=== PATIENT | female | born 1965 | race Caucasian/White ===

== ENCOUNTER 2019-11-27 06:59 | Day surgery (SDC) | payer OTHER, SELFPAY ==
[2019-11-27 07:15] VITALS: BP 154/90; PULSE 103; RESP 18; TEMP 36.7; O2SAT 97
[2019-11-27] MEDS: sodium chloride 0.9% 1,000 ML 30 ML (07:26)
--- NOTE | 2019-11-27 08:28 | ANES.PREANE2 ---
Pre-Anesthetic Assessment Pre-Anesthetic Assessment: Height/Weight: Height 1.63 m Weight 79.379 kg Temp Pulse Resp BP Pulse Ox 98.1 F 103 H 18 154/90 97 11/27/19 07:15 11/27/19 07:15 11/27/19 07:15 11/27/19 07:15 11/27/19 07:15 Proposed Procedure: Operation Date: 11/27/19 08:00 Proposed Procedures p Colonoscopy(Not Applicable) - Jet Cason MD Was Beta Che taken within 24 hours: N/A Last Intake: 00:00 Social: Social History: Tobacco and No alcohol Packs per day: 1 Exam: Pre-Anes Outpt Exam: alert, oriented x 3, clear to auscultation bilaterally and regular rate & rhythm Airway: Submandibular: WNL Cervical ROM: WNL MP: 2 Dentition: Full History/ROS: No significant history except as noted and No significant complaints Pulmonary: Pulmonary: None reported CV/HEM: CV/HEM: None reported : : None reported Hepatic: Hepatic: None reported GI: GI: None reported Metabolic: Metabolic: None reported Musc/skel: Musc/skel: None reported Neuropsych: Neuropsych: None reported Anesthetic Plan: ASA status: 2 Anesthesia: MAC Risk of > 500 ml blood loss (7ml/kg in children): No PFSH Anesthesia PFSH: Social History (Updated 11/26/19 @ 13:53 by Oly John) Smoking and tobacco status: current every day smoker Quit status (tobacco): not considering quitting Second hand smoke exposure: Yes Smoking risk assessment/counseling performed?: No Data Anesthesia Cardiac Studies: No Data to Display
--- NOTE | 2019-11-27 08:29 | PM.HPUD ---
H&P update H&P Update: DATE OF SURGERY/PROCEDURE: 11/27/19 DATE H&P PERFORMED: 11/16/19 PLANNED PROCEDURE: Operation Date: 11/27/19 08:00 Proposed Procedures p Colonoscopy(Not Applicable) - Jet Cason MD Full H&P HPI: PRIMARY INDICATION/DIAGNOSIS FOR SURGICAL PROCEDURE: Screening PLANNED PROCEDURE: Colonoscopy Perinent History: Medical/Surgical History: Allergies Anxiety/depression Social History: Social History Smoking and tobacco status: current every day smoker Quit status (tobacco): not considering quitting Second hand smoke exposure: Yes Smoking risk assessment/counseling performed?: No Pertinent Exam Findings: PHYSICAL EXAM: alert, oriented x 3, clear to auscultation bilaterally and regular rate & rhythm A&P Assessment and plan (1) Colon cancer screening: We discussed the risks of bleeding, perforation, and sedation. The patient has no further questions and wishes to proceed. Status: Acute Code(s): Z12.11 - Encounter for screening for malignant neoplasm of colon
[2019-11-27 09:06] VITALS: PULSE 79; RESP 16; TEMP 36.7; O2SAT 95
[2019-11-27 09:21] VITALS: BP 139/80; PULSE 55; RESP 18; O2SAT 100
== END 2019-11-27 09:44 | disposition home or self-care (01) ==
PROVIDERS: Family Provider Family Medicine; Visit Provider Family Medicine
PROC: 0DJD8ZZ Inspection of Lower Intestinal Tract, Via Natural or Artificial Opening Endoscopic (ICD-10-PCS; CPT 45378; principal; 2019-11-27 08:00)
DX: Z12.11 Encounter for screening for malignant neoplasm of colon (principal); K64.8 Other hemorrhoids; D12.2 Benign neoplasm of ascending colon; F17.210 Nicotine dependence, cigarettes, uncomplicated
CPT/HCPCS: 12345; 45385; 88305; J2704; J7030

== ENCOUNTER 2020-01-16 11:19 | Outpatient (CLI) | payer OTHER, SELFPAY ==
--- NOTE | 2020-01-16 | XR_ITS ---
WS: [id number] FOOT LEFT TECHNIQUE: 3 views of the left foot CLINICAL INFORMATION: ROLLED FOOT ON WET LOG, PAIN COMPARISON: None. FINDINGS: Soft tissue edema. Nondisplaced fracture base of the fifth metatarsal. No significant displacement. M ild hallux valgus. Achilles calcaneal spurring. XR/XR foot LT min 3V* [id number] IMPRESSION: Nondisplaced fracture base of the fifth metatarsal. Soft tissue edema.
== END 2020-01-16 11:20 | disposition home or self-care (01) ==
LOC: RADOUTREAD 01-18 11:34
PROVIDERS: Family Provider Family Medicine; Visit Provider Nurse Practitioner Family
DX: Z01.89 Encounter for other specified special examinations (principal)

== ENCOUNTER → 2020-01-25 08:26 | Outpatient (BNVA) | payer OTHER, SELFPAY | PROVIDERS: Family Provider Family Medicine; Referring Provider Nurse Practitioner Family; Visit Provider Podiatrist Foot & Ankle Surgery | DX: M79.672 Pain in left foot (principal); M20.12 Hallux valgus (acquired), left foot; S92.355A Nondisplaced fracture of fifth metatarsal bone, left foot, initial encounter for closed fracture; X58.XXXA Exposure to other specified factors, initial encounter | CPT/HCPCS: 73630 ==

== ENCOUNTER 2020-01-25 09:40 | Outpatient (CLI) | payer OTHER, SELFPAY | END 2020-01-25 09:41 | disposition home or self-care (01) | LOC: SPT 09:41 | PROVIDERS: Family Provider Family Medicine; Visit Provider Podiatrist Foot & Ankle Surgery | DX: Z46.89 Encounter for fitting and adjustment of other specified devices (principal); S92.812D Other fracture of left foot, subsequent encounter for fracture with routine healing; X58.XXXD Exposure to other specified factors, subsequent encounter | CPT/HCPCS: L4361 ==

== ENCOUNTER → 2020-02-22 09:33 | Outpatient (BNVA) | payer OTHER, SELFPAY | PROVIDERS: Family Provider Family Medicine; Visit Provider Podiatrist Foot & Ankle Surgery | DX: S92.352A Displaced fracture of fifth metatarsal bone, left foot, initial encounter for closed fracture (principal) | CPT/HCPCS: 73630 ==

== ENCOUNTER → 2020-03-16 11:29 | Outpatient (BNVA) | payer OTHER, SELFPAY | PROVIDERS: Family Provider Family Medicine; Visit Provider Podiatrist Foot & Ankle Surgery | DX: S92.355A Nondisplaced fracture of fifth metatarsal bone, left foot, initial encounter for closed fracture (principal); X58.XXXA Exposure to other specified factors, initial encounter | CPT/HCPCS: 73630 ==

== ENCOUNTER → 2020-04-13 08:35 | Outpatient (BNVA) | payer OTHER, SELFPAY | PROVIDERS: Family Provider Family Medicine; Visit Provider Podiatrist Foot & Ankle Surgery | DX: M76.62 Achilles tendinitis, left leg (principal); M20.12 Hallux valgus (acquired), left foot | CPT/HCPCS: 73630 ==

== ENCOUNTER → 2020-05-11 08:16 | Outpatient (BNVA) | payer OTHER, SELFPAY | PROVIDERS: Family Provider Family Medicine; Visit Provider Podiatrist Foot & Ankle Surgery | DX: T14.8XXA Other injury of unspecified body region, initial encounter (principal); S92.352A Displaced fracture of fifth metatarsal bone, left foot, initial encounter for closed fracture; S92.355A Nondisplaced fracture of fifth metatarsal bone, left foot, initial encounter for closed fracture; S92.355D Nondisplaced fracture of fifth metatarsal bone, left foot, subsequent encounter for fracture with routine healing | CPT/HCPCS: 73630 ==

== ENCOUNTER 2020-07-08 07:32 | Outpatient (CLI) | payer OTHER, SELFPAY ==
--- NOTE | 2020-07-08 07:40 | MM_ITS ---
WS: [id number] BILATERAL DIGITAL SCREENING MAMMOGRAPHY WITH CAD CLINICAL INFORMATION: SCREEN HISTORY: Screening mammogram. No current complaints. COMPARISON: September 02, 2018 TECHNIQUE: Bilateral CC and MLO views. FINDINGS: The breasts are composed of heterogeneous fibroglandular density tissue, which can limit the detectio n of small underlying mass lesions. Asymmetric breast tissue upper outer breasts bilaterally similar to 2018. No suspicious mass, asymmetry, calcifications, or architectural distortion. No evidence of m alignancy. MM/[id number] IMPRESSION: BI-RADS: 2-Benign FOLLOW UP: 1 Year Follow-up Recommend return to annual screening mammography.
== END 2020-07-08 07:33 | disposition home or self-care (01) ==
LOC: RADSHAW 07:34
PROVIDERS: PCP Family Medicine; Visit Provider Family Medicine
DX: Z12.31 Encounter for screening mammogram for malignant neoplasm of breast (principal)
CPT/HCPCS: 77067

== ENCOUNTER 2020-07-12 09:52 | Outpatient (CLI) | payer OTHER, SELFPAY ==
--- NOTE | 2020-07-12 09:56 | CT_ITS ---
WS: [id number] LDCT LUNG CANCER SCREENING TECHNIQUE: Noncontrast CT of the chest with coronal and sagittal reformatted images. CLINICAL INFORMATION: NICOTINE DEPENDENCE COMPARISON: None. DLP: 57.99 mGy.cm DIvol: 1.51 mGy,1.[address] scans at [facility] use at least one of these dose optimization techniques: automat ed exposure control; mA and/or kV adjustment per patient size (includes targeted exams where dose is matched to clinical indication); or iterative reconstruction. FINDINGS: 6.8 mm noncalcified opacity in the right middle lobe. Bibasilar atelectasis. A few calcified granulom as. No mediastinal or hilar lymphadenopathy. Calcified left hilar nodes. No axillary lymphadenopathy. Moderate spinal lytic changes thoracic spine with anterior hypertrophic changes. Disc space narrowin g in the mid thoracic spine with endplate degenerative changes. CT/CT lung screening [id number] IMPRESSION: LUNG-RADS: 3-Probably Benign FOLLOW UP: 6 Month LDCT
== END 2020-07-12 09:53 | disposition home or self-care (01) ==
LOC: CT 09:54
PROVIDERS: PCP Family Medicine; Visit Provider Family Medicine
DX: Z12.2 Encounter for screening for malignant neoplasm of respiratory organs (principal); F17.210 Nicotine dependence, cigarettes, uncomplicated
CPT/HCPCS: G0297

== ENCOUNTER 2021-05-09 13:45 | Outpatient (CLI) | payer OTHER, SELFPAY ==
--- NOTE | 2021-05-09 13:49 | CT_ITS ---
WS: [id number] LDCT LUNG CANCER SCREENING HISTORY: NICOTINE DEPENDENCE TECHNIQUE: Axial imaging performed from the apices to 1 cm below the costophrenic angles. Coronal and sagittal reformats are submitted with axial MIP series. All CT scans at [facility] use at least one of these dose optimization techniques: automated exposure control; mA and/or kV adjustment per patient size (includes targeted exams where dose is matched to clinical indication); or iterativ e reconstruction. DLP: 60.57 mGy.cm DIvol: 1.58 mGy,1.58 mGy COMPARISON: 07/12/2020 Diagnostic quality: Satisfactory Lung Nodules: No change in size of the ovoid 6 mm noncalcified nodule RIGHT middle lobe. Benign granu olga LEFT upper lobe. No additional nodules or masses. No endobronchial lesions. Lungs: Chronic emphysema. Heart: Mild enlargement of the heart chambers. No effusion. Other findings: Benign calcified LEFT hilar lymph nodes. No adenopathy identified otherwise. Small hi atal hernia. CT/CT lung screening [id number] IMPRESSION: LUNG-RADS: 3-Probably Benign FOLLOW UP: 6 Month LDCT OTHER FINDINGS (S MODIFIER): None.
== END 2021-05-09 13:46 | disposition home or self-care (01) ==
LOC: RAD 13:46
PROVIDERS: PCP Family Medicine; Visit Provider Family Medicine
DX: Z12.2 Encounter for screening for malignant neoplasm of respiratory organs (principal); F17.210 Nicotine dependence, cigarettes, uncomplicated; J43.9 Emphysema, unspecified; I51.7 Cardiomegaly
CPT/HCPCS: 71271

== ENCOUNTER 2021-09-04 14:11 | Outpatient (CLI) | payer OTHER, SELFPAY ==
--- NOTE | 2021-09-04 14:15 | MM_ITS ---
WS: [id number] BILATERAL DIGITAL SCREENING MAMMOGRAPHY WITH CAD CLINICAL INFORMATION: SCREENING HISTORY: Screening mammogram. No current complaints. COMPARISON: July 08, 2020 TECHNIQUE: Bilateral CC and MLO views. FINDINGS: Scattered fibroglandular densities bilaterally. A few benign punctate calcifications. Stable asymmetr ic dense parenchymal tissue upper outer breasts bilaterally. No suspicious focal mass, asymmetry, delma cifications, or architectural distortion. No evidence of malignancy. MM/[place] [id number] IMPRESSION: BI-RADS: 2-Benign FOLLOW UP: 1 Year Follow-up Recommend return to annual screening mammography.
== END 2021-09-04 14:12 | disposition home or self-care (01) ==
LOC: RADSHAW 14:14
PROVIDERS: PCP Family Medicine; Visit Provider Family Medicine
DX: Z12.31 Encounter for screening mammogram for malignant neoplasm of breast (principal)
CPT/HCPCS: 77067

== ENCOUNTER 2021-11-29 14:15 | Outpatient (CLI) | payer OTHER, SELFPAY ==
--- NOTE | 2021-11-29 14:49 | CT_ITS ---
WS: [id number] LDCT LUNG CANCER SCREENING TECHNIQUE: Noncontrast CT of the chest with coronal and sagittal reformatted images. CLINICAL INFORMATION: NICOTINE DEPENDENCE, CIGARETTES COMPARISON: None. DLP: 71.00 mGy.cm DIvol: Mean CTDIvol: 1.60 (mGy) All CT scans at [facility] use at least one of these dose optimization techniques: automat ed exposure control; mA and/or kV adjustment per patient size (includes targeted exams where dose is matched to clinical indication); or iterative reconstruction. FINDINGS: Stable 6 mm noncalcified nodule RIGHT middle lobe. No change since July 12, 2020. No new pulmona ry nodules. Slight bibasilar atelectasis. No mediastinal or hilar lymphadenopathy. No axillary lympha denopathy. Adrenal glands are normal. Normal GE junction. Hypertrophic changes thoracic spine. CT/CT lung screening [id number] IMPRESSION: LUNG-RADS: 3-Probably Benign FOLLOW UP: 6 Month LDCT
== END 2021-11-29 14:16 | disposition home or self-care (01) ==
LOC: RT 14:26 → RAD 14:48
PROVIDERS: PCP Family Medicine; Visit Provider Family Medicine
DX: Z12.2 Encounter for screening for malignant neoplasm of respiratory organs (principal); F17.210 Nicotine dependence, cigarettes, uncomplicated; R91.1 Solitary pulmonary nodule; J98.11 Atelectasis
CPT/HCPCS: 71271

== ENCOUNTER 2022-09-05 08:32 | Outpatient (CLI) | payer OTHER, SELFPAY ==
--- NOTE | 2022-09-05 08:38 | MM_ITS ---
WS: [id number] BILATERAL SCREENING DIGITAL TOMOSYNTHESIS MAMMOGRAM WITH CAD HISTORY: SCREENING COMPARISON: 09/04/2021, 07/08/2020 and 04/28/2019 Bilateral CC and MLO views with tomosynthesis and synthetic mammography submitted. Computer aided det ection analyzed. Breast composition: There are scattered areas of fibroglandular density. No suspicious masses, microc alcifications or architectural distortion. Asymmetry in the upper outer quadrant of the RIGHT breast is stable over multiple prior examinations. MM/[place] [id number] IMPRESSION: BI-RADS: 2-Benign FOLLOW UP: 1 Year Follow-up
== END 2022-09-05 08:33 | disposition home or self-care (01) ==
LOC: RAD 08:33
PROVIDERS: PCP Family Medicine; Visit Provider Family Medicine
DX: Z12.31 Encounter for screening mammogram for malignant neoplasm of breast (principal)
CPT/HCPCS: 77063; 77067

== ENCOUNTER 2022-12-07 08:23 | Outpatient (CLI) | payer OTHER, SELFPAY ==
--- NOTE | 2022-12-07 08:33 | CT_ITS ---
WS: [id number] LDCT LUNG CANCER SCREENING TECHNIQUE: Noncontrast CT of the chest with coronal and sagittal reformatted images. CLINICAL INFORMATION: NICOTINE DEPENDENCE, CIGARETTES COMPARISON: CT November 29, 2021 DLP: 78.72 mGy.cm DIvol: Mean CTDIvol: 1.60 (mGy) All CT scans at [facility] use at least one of these dose optimization techniques: automat ed exposure control; mA and/or kV adjustment per patient size (includes targeted exams where dose is matched to clinical indication); or iterative reconstruction. FINDINGS: Stable 6 mm noncalcified nodule RIGHT middle lobe. No changes since July 12, 2020. Recommend 12 month follow-up. Noncalcified nodule RIGHT upper lobe measuring 3 mm. A few calcified granulomas. 5 m m hazy opacity RIGHT upper lobe anteriorly unchanged. No new pulmonary nodules. Calcified LEFT hilar nodes. Adrenal glands are normal. Partially visualized RIGHT hepatic cyst. Slight bibasilar atelectasis. No mediastinal or hilar lymphadenopathy. No axilla ry lymphadenopathy. Adrenal glands are normal. Normal GE junction. Hypertrophic and degenerative cuevas ges thoracic spine. CT/CT lung screening [id number] IMPRESSION: LUNG-RADS: 2-Benign Appearance or Behavior FOLLOW UP: 12 Month: Continue annual screening with LDCT
== END 2022-12-07 08:24 | disposition home or self-care (01) ==
LOC: RAD 08:24
PROVIDERS: PCP Family Medicine; Visit Provider Family Medicine
DX: Z12.2 Encounter for screening for malignant neoplasm of respiratory organs (principal); F17.210 Nicotine dependence, cigarettes, uncomplicated
CPT/HCPCS: 71271

== ENCOUNTER 2023-09-26 13:07 | Outpatient (CLI) | payer OTHER, SELFPAY ==
--- NOTE | 2023-09-26 13:40 | MM_ITS ---
WS: [id number] SCREENING DIGITAL TOMOSYNTHESIS MAMMOGRAM WITH CAD HISTORY: SCREENING COMPARISON: 09/02/2018, 04/28/2019 and 09/05/2022 Bilateral CC and MLO with tomosynthesis views submitted. Synthetic mammography reviewed. Computer aid ed detection analyzed. Breast composition: There are scattered areas of fibroglandular density. No suspicious masses, microc alcifications or architectural distortion. Focal asymmetry in the upper outer quadrant of the RIGHT b reast is stable over multiple prior studies. IMPRESSION: MM/[place] [id number] BI-RADS: 2-Benign FOLLOW UP: 1 Year Follow-up
== END 2023-09-26 13:08 | disposition home or self-care (01) ==
LOC: RAD 13:07
PROVIDERS: PCP Family Medicine; Visit Provider Family Medicine
DX: Z12.31 Encounter for screening mammogram for malignant neoplasm of breast (principal)
CPT/HCPCS: 77063; 77067

== ENCOUNTER 2024-02-25 09:00 | Outpatient (CLI) | payer OTHER, SELFPAY ==
--- NOTE | 2024-02-25 09:04 | CT_ITS ---
WS: [id number] LDCT LUNG CANCER SCREENING HISTORY: NICOTINE DEPENDENCE TECHNIQUE: Axial imaging performed from the apices to 1 cm below the costophrenic angles. Coronal and sagittal reformats are submitted with axial MIP series. All CT scans at [facility] use at least one of these dose optimization techniques: automated exposure control; mA and/or kV adjustment per patient size (includes targeted exams where dose is matched to clinical indication); or iterativ e reconstruction. DLP: 55.00 mGy.cm DIvol: Mean CTDIvol: 1.10 (mGy) COMPARISON: 05/09/2021, 12/07/2022 Diagnostic quality: Satisfactory Lungs: Hyperexpanded lungs. Reidentified is the ovoid 6 mm noncalcified nodule in the RIGHT middle lo be. 3 mm noncalcified nodule in the posterior RIGHT upper lobe is also stable. There are a few benign granulomata. No new mass or enlarging mass. Heart: Normal size heart with no pericardial effusion.. Other findings: Mediastinal and hilar regions are difficult to evaluate for small enlarging lymph nod es. There are a few benign calcified lymph nodes. No adrenal mass. Increase in thoracic kyphosis. Ext ensive degenerative spondylitic changes in the thoracic spine. CT/CT lung screening [id number] IMPRESSION: LUNG-RADS: 2-Benign Appearance or Behavior FOLLOW UP: 12 Month: Continue annual screening with LDCT OTHER FINDINGS (S MODIFIER): None.
== END 2024-02-25 09:01 | disposition home or self-care (01) ==
LOC: RAD 09:00
PROVIDERS: PCP Family Medicine; Visit Provider Family Medicine
DX: Z12.2 Encounter for screening for malignant neoplasm of respiratory organs (principal); R91.1 Solitary pulmonary nodule
CPT/HCPCS: 71271